=== PATIENT | female | born 1985 | race African-American/Black ===

== ENCOUNTER 2017-05-24 20:33 | Emergency (ER) | payer SELFPAY, OTHER ==
[2017-05-24] MEDS: SOD CHLORIDE 0.9% 1,000 ML IV (21:05)
[2017-05-24] MEDS: ONDANSETRON 4 MG INJ IV (21:06)
[2017-05-24] MEDS: LORAZEPAM 2 MG INJ IV (21:06)
== END 2017-05-24 22:45 | disposition home or self-care (01) ==
LOC: E/R 20:33
DX: B34.9 Viral infection, unspecified (principal); F17.210 Nicotine dependence, cigarettes, uncomplicated
CPT/HCPCS: 84703; 96374; 96375; 99284-25